=== PATIENT | male | born 1965 | race Two or more races ===

== ENCOUNTER 2019-07-13 09:20 | Outpatient (CLI) | payer OTHER ==
[~2019-07-13 09:20] MED LIST: LEVSINEX0.375 M1 PO
== END 2019-07-13 15:00 | disposition home or self-care (01) ==
LOC: LAB SALUS 09:20
DX: Z13.220 Encounter for screening for lipoid disorders (principal); Z11.59 Encounter for screening for other viral diseases; Z13.1 Encounter for screening for diabetes mellitus; Z11.4 Encounter for screening for human immunodeficiency virus [HIV]; Z72.51 High risk heterosexual behavior; Z11.3 Encounter for screening for infections with a predominantly sexual mode of transmission; Z12.11 Encounter for screening for malignant neoplasm of colon